=== PATIENT | male | born 1945 | race Asian ===

== ENCOUNTER 2022-11-30 12:48 | Emergency (ER) | payer MEDICARE, OTHER ==
[~2022-11-30] VITALS: Ht 162.6 cm; Wt 63.6 kg
[~2022-11-30 12:48] MED LIST: ACLI400A2 IH; AMOX1TAB16 PO; ASPI-1444 PO; ATOR40TA71 PO; BUDE10.2 IH; DUTA0.5C38 PO; FLUT16SP NASAL; ISOS30TA92 PO; LEVAHFA IH; MONT-40 PO; MULT1TAB8 PO; NEBI5TAB PO; NYST5S PO; OMEP20CA12 PO; PRED10TA3 PO; ROFL500T PO; TAMS0.4C34 PO; VIT.D3 PO
[2022-11-30 13:02] VITALS: BP 146/77; PULSE 93; RESP 17; TEMP 99.8
[2022-11-30] MEDS ORDERED: CARB1TAB35 PO (13:04)
[2022-11-30] MEDS ORDERED: AMLO2.5T29 PO (13:04)
[2022-11-30 13:28] LABS: COVID AG,FIA SOURCE NASAL SWAB
[2022-11-30 13:59] LABS: SARS-COV2 (COVID) ANTIGEN,FIA Negative (Negative)
[2022-11-30 14:00] LABS: INFLUENZA TYPE A NEGATIVE FOR TYPE A (NEGATIVE); INFLUENZA TYPE B NEGATIVE FOR TYPE B (NEGATIVE)
[2022-11-30 14:06] LABS: RAPID GROUP A STREP NEGATIVE (NEGATIVE)
[2022-11-30] MEDS ORDERED: NIRM1TAB4 PO (14:47)
== END 2022-11-30 15:02 | disposition home or self-care (01) ==
LOC: EMS 12:56
DX: U07.1 COVID-19 (principal); J44.9 Chronic obstructive pulmonary disease, unspecified; E78.00 Pure hypercholesterolemia, unspecified; I10 Essential (primary) hypertension
CPT/HCPCS: 87430; 87804; 99283

== ENCOUNTER 2024-03-26 03:30 | Inpatient (IN) | payer MEDICARE, OTHER ==
[2024-03-26] VITALS (7 sets, daily range): BP systolic 127–143; BP diastolic 58–65; PULSE 75–94; RESP 18–20; TEMP 98.2–98.8; O2SAT 95–99
[~2024-03-26] VITALS: Ht 167.6 cm; Wt 68.1 kg
[~2024-03-26 03:30] MED LIST changes: -ACLI400A2 IH; +AMLO2.5T29 PO; +AMOX-457 PO; -AMOX1TAB16 PO; -ATOR40TA71 PO; -BUDE10.2 IH; +BUDE10.7 IH; +CARB1TAB35 PO; +CHOL25TA4 PO; +DENO60DI SQ; +EZET10TA57 PO; -ISOS30TA92 PO; +LEVA15HF3 IH; -LEVAHFA IH; -MULT1TAB8 PO; -NEBI5TAB PO; +NEBI5TAB12 PO; -NYST5S PO; +PRED-729 PO; -PRED10TA3 PO; +RIVA2.5T3 PO; +ROSU20TA98 PO; -TAMS0.4C34 PO; +TAMS0.4C94 PO; -VIT.D3 PO
[2024-03-26] MEDS: IPRATROPIUM BROMIDE 0.5 MG/2.5 ML NEB SOLUTION NEB ONE (05:04)
[2024-03-26] MEDS: ALBUTEROL SULFATE 2.5 MG/0.5 ML NEB SOLUTION NEB ONE (05:04)
[2024-03-26 05:07] LABS: COVID AG,FIA SOURCE NASAL SWAB
[2024-03-26 05:08] LABS: BASOPHILS % (AUTO) 0.5 % (0.0-2.0); EOSINOPHILS % (AUTO) 3.3 % (1.0-6.0); HEMATOCRIT 40.3 % (41-53); HEMOGLOBIN 13.7 g/dL (13.5-17.5); LYMPHOCYTES # (AUTO) 1.7 K/uL (1.0-4.8); LYMPHOCYTES % (AUTO) 21.5 % (22.0-44.0); MEAN CORPUSCULAR HEMOGLOBIN 31.1 pg (26.0-34.0); MEAN CORPUSCULAR HGB CONC 34.1 G/dL (31.0-37.0); MEAN CORPUSCULAR VOLUME 91 fL (80-100); MONOCYTES # (AUTO) 1.2 K/uL (0.1-1.0); MONOCYTES % (AUTO) 14.6 % (2.0-9.0); NEUTROPHILS # (AUTO) 4.8 K/uL (1.8-7.7); NEUTROPHILS % (AUTO) 60.1 % (40.0-70.0); PLATELET COUNT (AUTO) 230 K/uL (150-450); RED BLOOD CELL COUNT(AUTO) 4.42 MIL/uL (4.50-5.90); RED CELL DISTRIBUTION WIDTH 13.6 % (11.5-14.5); WHITE BLOOD COUNT (AUTO) 7.9 K/uL (4.5-11.0)
[2024-03-26 05:25] LABS: ANION GAP 2 mmol/L (8-16); CALCIUM, TOTAL 8.7 mg/dL (8.8-10.5); CARBON DIOXIDE 32 mmol/L (22-29); CHLORIDE 103 mmol/L (98-107); GLOMERULAR FILTR. RATE CALC > 60 mL/min (>60); GLUCOSE,RANDOM 129 mg/dL (70-110); POTASSIUM 4.6 mmol/L (3.5-5.1); SODIUM SERUM 137 mmol/L (136-145); UREA NITROGEN, BLOOD 14 mg/dL (7-18)
[2024-03-26 05:44] LABS: INFLUENZA TYPE A NEGATIVE FOR TYPE A (NEGATIVE); INFLUENZA TYPE B NEGATIVE FOR TYPE B (NEGATIVE)
[2024-03-26 05:45] LABS: SARS-COV2 (COVID) ANTIGEN,FIA Negative (Negative)
[2024-03-26 05:50] LABS: TROPONIN I-HIGH SENSITIVITY Less Than 4 ng/L (<76)
[2024-03-26 05:58] LABS: B-TYPE NATRIURETIC PEPTIDE 48 pg/mL (0-100)
[2024-03-26] MEDS: AZITHROMYCIN 500 MG/NS 250 ML IV ONE (06:00)
[2024-03-26] MEDS: CEFEPIME HCL 1 GM in DEXTROSE 5%-WATER 50 ML IV ONE (06:42)
[2024-03-26] MEDS ORDERED: ACETAMINOPHEN 325 MG TABLET PO PRN (10:00)
[2024-03-26] MEDS ORDERED: MAGNESIUM HYDROXIDE SUSPENSION 30 ML UDCUP PO PRN (10:00)
[2024-03-26] MEDS: *CLINICAL-CEFEPIME DOSING CLINICAL ONE (10:04)
[2024-03-26] MEDS: PredniSONE 10 MG TABLET PO SCH (11:20)
[2024-03-26] MEDS: CEFEPIME HCL 1 GM in DEXTROSE 5%-WATER 50 ML IV SCH (15:24)
[2024-03-26] MEDS: CARBIDOPA/LEVODOPA 25-100 MG TABLET PO SCH (15:47)
[2024-03-26] MEDS: HEPARIN SODIUM,PORCINE 5,000 UNITS/ML VIAL SQ SCH (15:48)
[2024-03-26] MEDS ORDERED: TAMSULOSIN HCL 0.4 MG CAPSULE PO SCH (21:00)
[2024-03-26] MEDS ORDERED: CARBIDOPA/LEVODOPA/ENTACAPONE 25-100-200 MG TABLET PO SCH (21:00)
[2024-03-26] MEDS: DOCUSATE SODIUM 100 MG CAPSULE PO SCH (21:00)
[2024-03-26] MEDS: TAMSULOSIN HCL 0.4 MG CAPSULE PO SCH (21:57)
[2024-03-26] MEDS: IPRATROPIUM BROMIDE 0.5 MG/2.5 ML NEB SOLUTION NEB PRN (23:18)
[2024-03-26] MEDS: ALBUTEROL SULFATE 2.5 MG/0.5 ML NEB SOLUTION NEB PRN (23:18)
[2024-03-27] VITALS (7 sets, daily range): BP systolic 129–135; BP diastolic 53–84; PULSE 77–102; RESP 18–22; TEMP 97.8–98.9; O2SAT 96–100
[2024-03-27] MEDS: EZETIMIBE 10 MG TABLET PO SCH (08:26)
[2024-03-27] MEDS: FAMOTIDINE 20 MG TABLET PO SCH (08:27)
[2024-03-27] MEDS: ASPIRIN 81 MG CHEWABLE TABLET PO SCH (08:27)
[2024-03-27] MEDS: AZITHROMYCIN 500 MG/NS 250 ML IV SCH (08:28)
[2024-03-27 11:41] LABS: BASOPHILS % (AUTO) 0.2 % (0.0-2.0); EOSINOPHILS % (AUTO) 0.5 % (1.0-6.0); HEMATOCRIT 40.3 % (41-53); HEMOGLOBIN 13.4 g/dL (13.5-17.5); LYMPHOCYTES # (AUTO) 0.9 K/uL (1.0-4.8); LYMPHOCYTES % (AUTO) 11.4 % (22.0-44.0); MEAN CORPUSCULAR HEMOGLOBIN 30.5 pg (26.0-34.0); MEAN CORPUSCULAR HGB CONC 33.3 G/dL (31.0-37.0); MEAN CORPUSCULAR VOLUME 92 fL (80-100); MONOCYTES # (AUTO) 0.4 K/uL (0.1-1.0); MONOCYTES % (AUTO) 5.7 % (2.0-9.0); NEUTROPHILS # (AUTO) 6.4 K/uL (1.8-7.7); NEUTROPHILS % (AUTO) 82.2 % (40.0-70.0); PLATELET COUNT (AUTO) 232 K/uL (150-450); RED CELL DISTRIBUTION WIDTH 13.5 % (11.5-14.5); WHITE BLOOD COUNT (AUTO) 7.8 K/uL (4.5-11.0)
[2024-03-27 12:17] LABS: ANION GAP 7 mmol/L (8-16); CALCIUM, TOTAL 8.7 mg/dL (8.8-10.5); CARBON DIOXIDE 28 mmol/L (22-29); CHLORIDE 103 mmol/L (98-107); CREATININE 0.77 mg/dL (0.60-1.30); GLOMERULAR FILTR. RATE CALC > 60 mL/min (>60); GLUCOSE,RANDOM 149 mg/dL (70-110); POTASSIUM 4.3 mmol/L (3.5-5.1); SODIUM SERUM 138 mmol/L (136-145); UREA NITROGEN, BLOOD 14 mg/dL (7-18)
[2024-03-28 04:22] VITALS: BP 146/76; PULSE 78; RESP 19; TEMP 98.1; O2SAT 96
[2024-03-28 07:06] LABS: BASOPHILS % (AUTO) 0.3 % (0.0-2.0); EOSINOPHILS % (AUTO) 1.7 % (1.0-6.0); HEMATOCRIT 37.3 % (41-53); HEMOGLOBIN 12.7 g/dL (13.5-17.5); LYMPHOCYTES # (AUTO) 2.5 K/uL (1.0-4.8); LYMPHOCYTES % (AUTO) 33.8 % (22.0-44.0); MEAN CORPUSCULAR HEMOGLOBIN 30.8 pg (26.0-34.0); MEAN CORPUSCULAR HGB CONC 34.2 G/dL (31.0-37.0); MEAN CORPUSCULAR VOLUME 90 fL (80-100); MONOCYTES % (AUTO) 13.1 % (2.0-9.0); NEUTROPHILS # (AUTO) 3.8 K/uL (1.8-7.7); NEUTROPHILS % (AUTO) 51.1 % (40.0-70.0); PLATELET COUNT (AUTO) 218 K/uL (150-450); RED BLOOD CELL COUNT(AUTO) 4.14 MIL/uL (4.50-5.90); RED CELL DISTRIBUTION WIDTH 13.5 % (11.5-14.5); WHITE BLOOD COUNT (AUTO) 7.5 K/uL (4.5-11.0)
[2024-03-28 07:31] VITALS: BP 137/63; PULSE 80; RESP 18; TEMP 98; O2SAT 94
[2024-03-28 07:35] LABS: ANION GAP 7 mmol/L (8-16); CALCIUM, TOTAL 8.2 mg/dL (8.8-10.5); CARBON DIOXIDE 28 mmol/L (22-29); CHLORIDE 104 mmol/L (98-107); GLOMERULAR FILTR. RATE CALC > 60 mL/min (>60); GLUCOSE,RANDOM 93 mg/dL (70-110); POTASSIUM 3.4 mmol/L (3.5-5.1); SODIUM SERUM 139 mmol/L (136-145); UREA NITROGEN, BLOOD 9 mg/dL (7-18)
[2024-03-28] MEDS ORDERED: LEVO-72 PO (11:32)
[2024-03-28 12:00] VITALS: BP 139/67; PULSE 81; RESP 18; TEMP 98.9; O2SAT 96
[2024-03-28] MEDS: POTASSIUM CHLORIDE 20 MEQ ER TABLET PO ONE (13:13)
== END 2024-03-28 13:50 | disposition home or self-care (01) | DRG 190 ==
LOC: EMS 03:31 → EDH 10:12 → 5N 11:45
PROVIDERS: ADMIT Internal Medicine; ATTEND Internal Medicine
DX: J44.1 Chronic obstructive pulmonary disease with (acute) exacerbation (principal); J18.9 Pneumonia, unspecified organism; J47.0 Bronchiectasis with acute lower respiratory infection; G20.A1 Parkinson's disease without dyskinesia, without mention of fluctuations; Z20.822 Contact with and (suspected) exposure to COVID-19; I25.10 Atherosclerotic heart disease of native coronary artery without angina pectoris; N40.0 Benign prostatic hyperplasia without lower urinary tract symptoms; Y95 Nosocomial condition; J44.0 Chronic obstructive pulmonary disease with (acute) lower respiratory infection; I10 Essential (primary) hypertension; E78.00 Pure hypercholesterolemia, unspecified; Z79.899 Other long term (current) drug therapy
CPT/HCPCS: 71045; 71250; 80048; 83880; 84484; 85025; 87804; 92610; 93005; 94640; 97116; 97162; 97530; 99285; J0456; J0692; J1644; J7060; 36415-L1; 36415-TC; J7512; J7613; Z7610